=== PATIENT | male | born 1990 | race Caucasian/White ===

== ENCOUNTER 2018-07-28 14:59 | Emergency (ER) | payer OTHER ==
[2018-07-28 15:09] VITALS: BMI 27.2
[2018-07-28] MEDS ORDERED: ZPAK PO (16:25)
[2018-07-28] MEDS ORDERED: PSEUDO-GEST60 MG PO (16:25)
[2018-07-28 17:03] VITALS: BP 150/72
== END 2018-07-28 17:04 | disposition home or self-care (01) ==
LOC: D.ER 14:59
DX: J01.90 Acute sinusitis, unspecified (principal); J06.9 Acute upper respiratory infection, unspecified

== ENCOUNTER 2018-10-16 14:40 | Emergency (ER) | payer MEDICAID ==
[~2018-10-16] VITALS: Ht 182.9 cm; Wt 93.2 kg
[~2018-10-16 14:40] MED LIST: PSEUDO-GEST60 MG PO; ZPAK PO
[2018-10-16 14:45] VITALS: Ht 182.9 cm; Wt 93.2 kg
[2018-10-16] MEDS ORDERED: ZPAK PO (15:56)
[2018-10-16] MEDS ORDERED: FLUTICASONE PRO16 GM NASAL (15:56)
[2018-10-16 16:29] VITALS: BP 127/78
== END 2018-10-16 16:30 | disposition home or self-care (01) ==
LOC: D.ER 14:40
DX: J01.90 Acute sinusitis, unspecified (principal); R51 Headache

== ENCOUNTER 2018-12-07 01:58 | Emergency (ER) | payer MEDICAID ==
[~2018-12-07] VITALS: Ht 182.9 cm; Wt 90.9 kg
[~2018-12-07 01:58] MED LIST changes: +FLUTICASONE PRO16 GM NASAL
[2018-12-07 02:01] VITALS: Ht 182.9 cm; Wt 90.9 kg
[2018-12-07] MEDS ORDERED: FLUTICASONE PRO16 GM NASAL (02:34)
[2018-12-07] MEDS ORDERED: AUGMENTIN 875-11 TAB PO (02:34)
[2018-12-07 02:50] VITALS: BP 125/89
== END 2018-12-07 02:51 | disposition home or self-care (01) ==
LOC: D.ER 01:58
DX: J02.0 Streptococcal pharyngitis (principal); J01.90 Acute sinusitis, unspecified; F17.200 Nicotine dependence, unspecified, uncomplicated

== ENCOUNTER 2020-06-13 19:50 | Emergency (ER) | payer MEDICAID ==
[~2020-06-13] VITALS: Ht 182.9 cm; Wt 95.5 kg
[~2020-06-13 19:50] MED LIST changes: +AUGMENTIN 875-11 TAB PO
[2020-06-13 20:02] VITALS: Ht 182.9 cm; Wt 95.5 kg
[2020-06-13 22:18] VITALS: BP 136/86
== END 2020-06-13 22:17 | disposition home or self-care (01) ==
LOC: D.ER 19:50
DX: S61.210A Laceration without foreign body of right index finger without damage to nail, initial encounter (principal); W26.0XXA Contact with knife, initial encounter; Y93.9 Activity, unspecified; Y92.9 Unspecified place or not applicable